=== PATIENT | female | born 2000 | race Caucasian/White ===

== ENCOUNTER → 2019-12-17 13:17 | Outpatient (CLI) | payer OTHER, SELFPAY ==
[2018-08-12 11:53] VITALS: BMI 19.3
[2019-12-21 03:06] LABS: Chlamydia By Nucleic Acid AMP Negative (Negative)
[2019-12-21 08:00] LABS: Gonococcus By Nucleic Acid AMP Negative (Negative)
[2019-12-22 11:58] LABS: HPV Reflexed? NOT INDICATED
== END ==
PROVIDERS: PCP Pediatrics; Visit Provider Obstetrics & Gynecology
DX: Z12.4 Encounter for screening for malignant neoplasm of cervix (principal); Z11.3 Encounter for screening for infections with a predominantly sexual mode of transmission
CPT/HCPCS: 87491; 87591; 88175; G0145

== ENCOUNTER → 2020-03-02 14:08 | Outpatient (CLI) | payer OTHER, SELFPAY ==
[2018-08-12 11:53] VITALS: BMI 19.3
[2020-03-06 16:08] LABS: Chlamydia By Nucleic Acid AMP Negative (Negative)
[2020-03-06 20:50] LABS: Gonococcus By Nucleic Acid AMP Negative (Negative)
== END ==
PROVIDERS: Visit Provider Obstetrics & Gynecology
DX: Z11.3 Encounter for screening for infections with a predominantly sexual mode of transmission (principal)
CPT/HCPCS: 87491; 87591

== ENCOUNTER 2020-07-04 00:01 | Emergency (ER) | payer OTHER, SELFPAY ==
[2020-03-29 11:53] VITALS: BMI 22.7
[2020-07-04 00:02] VITALS: BP 110/61; PULSE 91; RESP 18; TEMP 36.6; O2SAT 97; BMI 21.8
[2020-07-04 00:18] LABS: Bacteria 0 SEEN /hpf (None Seen); Color, Urine Yellow (Yellow); Glucose, Dipstick Normal (Normal); Ketone-Dipstick 5 mg/dl (Negative); Leukocyte Esterase-Dipstick 25 /ul (Negative); Mucous, Urine 0 SEEN /hpf (<or=2+); Nitrite-Dipstick Negative (Negative); Occult Blood-Urine 10 /ul (Negative); Protein-Dipstick 15 mg/dl (Negative); Urine Bilirubin Dipstick Negative (Negative); Urine Clarity Clear (Clear); Urine Urobilinogen 1 mg/dl (Normal)
[2020-07-04 00:23] LABS: Internal QC Validated? YES +Cl - CLEAR BKGD; Pregnancy, Urine Negative Negative; Red Blood Cells-Urine 0-5 SEEN /hpf (0-5); Squamous Epithelial Cells - UA 0-5 SEEN /hpf (5-10); White Blood Cells 0-5 SEEN /hpf (0-5)
--- NOTE | 2020-07-04 00:30 | CT_ITS ---
STUDY: CT ABDOMEN AND PELVIS WITH CONTRAST REASON FOR EXAM: Female, 20 years old. RLQ pain, ? cyst vs appy RADIATION DOSAGE (If Supplied By Facility): CTDIvol = ( 11.12 ) mGy, DLP = ( 606.01 ) mGycm TECHNIQUE: Transaxial images were obtained from the dome of the diaphragm to the symphysis pubis without oral contrast. IV 100mL Isovue-370 was administered. Sagittal and coronal images were reconstructed. Individualized dose optimization techniques were used for this CT. COMPARISON: 08/06/2013. FINDINGS: The visualized lung bases are unremarkable. The visualized portions of the heart are within normal limits. Normal liver. Normal gallbladder and extrahepatic biliary system. Normal spleen. Normal pancreas. Normal bilateral adrenal glands. Normal right kidney. Normal left kidney. Normal visualized stomach. No distention of distal small bowel loops with foamy debris which may indicate mild obstruction versus enteritis. No specific fecal debris. The appendix is visualized and appears normal. Normal abdominal aorta. Normal inferior vena cava. Normal retroperitoneum. Normal urinary bladder. Anteverted uterus with IUD in place. A right-sided ovarian cyst measuring approximately 1.8 cm. Mild free fluid in the posterior cul-de-sac, nonspecific. Normal abdominal wall. Normal osseous structures. CT/Abdomen/Pelvis W IV Cont ONLY IMPRESSION: Right-sided ovarian cyst as described above measuring 1.8 cm. No acute appendicitis. Possible enteritis versus obstruction as described above. No bowel obstruction. Electronically Signed: Debbi Lr MD at 1:37 EDT , Service support ,
--- NOTE | 2020-07-04 00:33 | ED.DCSUM_ITS ---
History of Present Illness Chief Complaint: Abd Pain Informant: Patient Onset: Today Context: Sudden Onset Timing: Continuous Narrative: Is a 20-year-old female with history of ovarian cyst and depression presenting with with lower abdominal pain. Patient is it started suddenly about an hour and a half ago. She describes it as sharp, severe as well as a pressure. She started shaking and had nausea associated with the pain. Since he is arrived to the ER the pain has subsided a little bit but still present. She states she is been having normal bowel movements. She denies any fever. She does have a history of a ruptured ovarian cyst so she is not sure if that is what it is. She does not think it localizes to the left or the right. Patient did have some dysuria in the ER but had not noticed it before this. She denies any hematuria. Her last menstrual period was 3 weeks ago. She is not concerned for as she has an IUD. No history of any abdominal surgeries. No other complaints at this time. Past Medical History - Allergies and Home Meds Allergies/Adverse Reactions: Allergies red (food color) Allergy (Mild, Verified 07/04/20 00:04) Hives Primary Care Physician: Rhiannon Vieira MD [Primary Care Provider] - Past Medical History: - - depression Surgical History: no surgical history Lives: Spouse/ Significant Other Smoking Status: Never smoker Review of Systems General: Denies: Chills, Fever, Sweats Eyes: Denies: Visual changes - bilaterally, Diplopia ENT: Denies: Rhinorrhea, Sore throat Cardiovascular: Denies: Chest pain, Palpitations Respiratory: Denies: Dyspnea, Cough, Dyspnea on exertion Gastrointestinal: Reports: Abdominal pain, Nausea. Denies: Vomiting, Diarrhea, Melena, Hematochezia Genitourinary: Reports: Dysuria. Denies: Hematuria, Frequency Musculoskeletal: Denies: Back pain, Extremity Pain Skin: Denies: Rash, Wounds Neurological: Denies: Headache, Weakness, Numbness Physical Exam Vital Signs/Narrative: Vital Signs Temp Pulse Resp BP Pulse Ox 07/04/20 00:02 97.9 F 91 18 110/61 97 Inital Vital Signs reviewed: Yes General: Well nourished, Well developed, No Acute Distress Head: Normocephalic, Atraumatic Eyes: Perrl, EOMI ENT: Moist mucous membranes, No rhinorrhea Neck: Supple, Nontender Cardiovascular: Regular rate, Regular rhythm, No murmurs Respiratory: No distress, CTA bilaterally, Chest nontender Abdomen: Soft, Nondistended, Normal bowel sounds, Tender - lower abdomen , - - Pain at McBurney's point. Negative for: Mass Back: Nontender, Normal Inspection. Negative for: CVA tenderness Extremities: Nontender, No edema Skin: Normal color, No rash Neurological: Alert, Oriented x3, Cranial nerves II-XII grossly intact, Normal Strength, Normal Sensation Psychological: Normal affect, Normal Mood Diagnostic/Tx/Re-eval Clinical Impression(s) from Imaging Studies Abdomen/Pelvis CT 07/04/20 00:30 IMPRESSION: Right-sided ovarian cyst as described above measuring 1.8 cm. No acute appendicitis. Possible enteritis versus obstruction as described above. No bowel obstruction. Electronically Signed: Debbi Lr MD at 1:37 EDT , Service support , Laboratory Data 07/04/20 07/04/20 07/04/20 00:14 00:40 00:40 WBC 7.0 RBC 4.17 L Hgb 12.9 Hct 38.1 MCV 91.4 MCH 30.9 MCHC 33.9 RDW Std Deviation 41.1 RDW Coeff of Opal 12.3 Plt Count 207 MPV 10.1 Immature Gran % (Auto) 0.300 Neut % (Auto) 60.1 Lymph % (Auto) 31.9 Arthur % (Auto) 6.3 Eos % (Auto) 1.1 Baso % (Auto) 0.3 Absolute Neuts (auto) 4.2 Absolute Lymphs (auto) 2.24 Nucleated RBC % 0 Sodium 138 Potassium 3.3 L Chloride 104 Carbon Dioxide 30.0 Anion Gap 4 L BUN 17 Creatinine 0.81 Estim Creat Clear Calc 113.85 Est GFR (MDRD) Af Amer 113 Est GFR (MDRD) Non-Af 93 BUN/Creatinine Ratio 20.9 H Glucose 119 H Calcium 8.6 Total Bilirubin 0.50 AST 10 L ALT 20 Alkaline Phosphatase 80 Total Protein 6.8 Albumin 3.9 Globulin 2.9 Albumin/Globulin Ratio 1.3 Lipase 52 L Urine Color Yellow Urine Clarity Clear Urine pH 6.0 Ur Specific Closplint 1.020 Urine Protein 15 H Urine Glucose (UA) Normal Urine Ketones 5 H Urine Occult Blood 10 H Urine Nitrite Negative Urine Bilirubin Negative Urine Urobilinogen 1 H Ur Leukocyte Esterase 25 H Urine RBC 0-5 SEEN Urine WBC 0-5 SEEN Ur Squamous Epith Cells 0-5 SEEN Urine Bacteria 0 SEEN Urine Mucus 0 SEEN Urine Test Negative - Medical Decision Making Evaluated for lower abdominal pain. It came on suddenly. On exam she has tenderness in her right lower quadrant is most pronounced. CT of the abdomen pelvis obtained for concern of appendicitis versus ovarian cyst. CT shows evidence of ovarian cyst but a normal appendix. Her lab work is largely unremarkable. There was an issue with machine for CMP so those results were delayed. Patient elected to go home and be contacted should there be any abnormal labs. Patient is feeling better. She is given 1 dose of morphine as well as Zofran and IV fluids in the ER. She is ambulating easily. 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 At this time I do not think she has a torsion as her symptoms have pretty much resolved. Her urine is negative I do not suspect an ectopic . Patient is counseled on signs and symptoms requiring return to the emergency room. Patient verbalizes agreement and understand this plan. Patient discharged home in stable and improved condition. ED Disposition - Plan for ED Patient: Disposition: Home or Assisted Living Diagnosis: Ovarian cyst rupture Instructions: ED Ovarian Cyst Prescriptions: Ondansetron [Zofran Odt] 4 mg PO Q8H PRN PRN #10 tablet PRN Reason: Nausea Transmission Status: Received by [id number] Referrals: Rhiannon Vieira MD [Primary Care Provider] -
[2020-07-04] MEDS: Morphine 4 MG/ML Syringe IV (00:40)
[2020-07-04] MEDS: 0.9% Normal Saline 1,000 ML 1000 ML IV (00:40)
[2020-07-04] MEDS: Ondansetron 4 MG/2 ML Vial IV (00:40)
[2020-07-04 00:46] LABS: Absolute Lymphocyte Count 2.24 X10^3/uL (0.83-4.51); Absolute Neutrophil Count 4.2 X10^3/uL (2.0-7.7); Basophil# 0.02 X10^3/uL; Basophil% 0.3 % (0-1); Eosinophil# 0.08 X10^3/uL; Eosinophils% 1.1 % (0-5); Hematocrit 38.1 % (37-47); Hemoglobin 12.9 g/dL (12.0-15.0); Lymphocyte # 2.24 X10^3/ul (0.83-4.51); Lymphocyte % 31.9 % (19-41); Mean Corp Hgb Conc 33.9 g/dL (32-36); Mean Corpuscular Hgb 30.9 pg (27.0-32.0); Mean Corpuscular Volume 91.4 fL (81-99); Mean Platelet Vol. 10.1 fl (6.2-12.0); Monocyte# 0.44 X10^3/uL; Monocyte% 6.3 % (0-10); NRBC Flagged by Analyzer 0 % (0-5); Neutrophil # 4.23 X10^3/uL (2.7-7.7); Neutrophil % 60.1 % (47-70); Platelet Count 207 K/mm3 (150-450); RBC Distribution Width CV 12.3 % (11.6-14.6); RBC Distribution Width SD 41.1 fl (35.1-43.9); Red Blood Count 4.17 M/mm3 (4.2-5.4)
[2020-07-04 02:44] VITALS: BP 109/61; PULSE 69; RESP 18; O2SAT 98
[2020-07-04 03:27] LABS: ALB/GLOB Ratio 1.3 RATIO (0.9-2.4); AST(SGOT) 10 U/L (15-37); Alanine Aminotransfer ALT/SGPT 20 U/L (13-56); Albumin, Serum 3.9 g/dL (3.2-5.0); Alkaline Phosphatase 80 U/L (45-117); Anion Gap 4 (5-15); BUN 17 mg/dL (7-18); BUN/Creat Ratio 20.9 RATIO (10-20); Calcium,Total 8.6 mg/dL (8.5-10.1); Chloride 104 mmol/L (98-107); Creatinine, Serum 0.81 mg/dL (0.55-1.02); EST Glomerular Filtration Rate 93 mL/min (>60); Est Glom Filt Rate - Afr Amer 113 mL/min (>60); Estimated Creatinine Clearance 113.85 ml/min; Globulin 2.9 g/dL (2.2-4.2); Glucose 119 mg/dL (74-106); Lipase 52 U/L (73-393); Potassium 3.3 mmol/L (3.5-5.1); Protein, Total 6.8 g/dL (6.4-8.2); Sodium Level 138 mmol/L (136-145)
== END 2020-07-04 02:46 | disposition home or self-care (01) ==
PROVIDERS: Emergency Provider Emergency Medicine; PCP Pediatrics
DX: N83.209 Unspecified ovarian cyst, unspecified side (principal)
CPT/HCPCS: 74177; 80053; 81001; 81025; 83690; 85025; 96361; 96374; 96375; 99282; J7030; Q9967; A4216; J2405